=== PATIENT | male | born 1960 | race Caucasian/White ===

== ENCOUNTER 2017-12-18 22:55 | Emergency (ER) | payer OTHER ==
[~2017-12-18] VITALS: Ht 160 cm; Wt 95.5 kg
[2017-12-18] MEDS ORDERED: AMLO-511 PO (23:06)
[2017-12-18] MEDS ORDERED: METO50 PO (23:06)
[2017-12-19] MEDS ORDERED: DiphenhydrAMINE HCL 25 MG CAPSULE PO ONE (00:15)
[2017-12-19] MEDS ORDERED: NEOMYCIN/POLYMYXIN B/HYDROCORT 10 ML OTIC SUSPENSION AS ONE (00:15)
[2017-12-19] MEDS ORDERED: CEPHALEXIN MONOHYDRATE 500 MG CAPSULE PO ONE (00:15)
[2017-12-19] MEDS ORDERED: HYDROCODONE/ACETAMINOPHEN 5-325 MG TABLET PO ONE (00:15)
[2017-12-19 00:37] VITALS: BP 145/91
== END 2017-12-19 01:04 | disposition home or self-care (01) ==
LOC: EMS 22:56
DX: H60.92 Unspecified otitis externa, left ear (principal); I10 Essential (primary) hypertension; Z87.891 Personal history of nicotine dependence; Z88.6 Allergy status to analgesic agent
CPT/HCPCS: 99284